=== PATIENT | male | born 1945 | race Caucasian/White ===

== ENCOUNTER 2020-12-01 12:13 | Emergency (ER) | payer MEDICARE ==
[~2020-12-01] VITALS: Ht 175.3 cm; Wt 90.2 kg
[~2020-12-01 12:13] MED LIST: AMLO5TAB4 PO; HYDR12.59 PO
[2020-12-01 12:18] VITALS: BP 158/71
== END 2020-12-01 13:19 | disposition home or self-care (01) ==
LOC: ED 12:45
DX: S27.2XXD Traumatic hemopneumothorax, subsequent encounter (principal); Z48.02 Encounter for removal of sutures; I10 Essential (primary) hypertension; W01.0XXD Fall on same level from slipping, tripping and stumbling without subsequent striking against object, subsequent encounter
CPT/HCPCS: 99281